=== PATIENT | male | born 1990 | race African-American/Black ===

== ENCOUNTER 2016-09-23 21:30 | Emergency (ER) | payer OTHER ==
[2016-09-23 21:57] VITALS: BMI 21.2
--- NOTE | 2016-09-23 23:38 | PDOC ---
History of Present Illness - General History Source: Patient Exam Limitations: No Limitations - History of Present Illness Initial Comments: 09/24/16 00:41 The patient is a 26 year old male, with a significant past medical history of asthma (as a child), who presents to the emergency department with intermittent nonradiating chest pain for one month but worsening today, prompting the patient to come to the ED for evaluation. The patient describes the chest pain as sharp in nature and he rates it a 7/10 in severity. The patient reports that episodes of the chest pain last 1-2 seconds before resolving. The patient additionally endorses some mild shortness of breath. The patient denies any diaphoresis or palpitations. The patient denies nausea or vomiting. The patient denies a past or family history of cardiac disease. The patient denies any injury or trauma. The patient's mother is at the bedside. Allergies: Ibuprofen, NSAIDS. Past Surgical History: None reported. Social History: Non smoker. Denies alcohol or drug use. PCP: Dr. Magallanes <Brianne Wilder - Last Filed: 09/24/16 00:41> - General History Source: Patient Exam Limitations: No Limitations <Antony Ramirez - Last Filed: 09/24/16 01:46> - General Chief Complaint: Chest Pain Stated Complaint: CHEST PAIN Time Seen by Provider: 09/23/16 23:14 Past History <Brianne Wilder - Last Filed: 09/24/16 00:41> - Past Medical History Disorders: Yes (renal stones) - Psycho/Social/Smoking Cessation Hx Suicidal Ideation: No Smoking Status: No Smoking History: Never smoked Number of Cigarettes Smoked Daily: 0 Hx Alcohol Use: No Drug/Substance Use Hx: No Substance Use Type: None <Antony Raimrez - Last Filed: 09/24/16 01:46> - Past Medical History Allergies/Adverse Reactions: Allergies Allergy/AdvReac Type Severity Reaction Status Date / Time ibuprofen Allergy Severe ANAPHALAXIS Verified 09/23/16 21:41 NSAIDS (Non-Steroidal Allergy Verified 09/23/16 21:41 Anti-Inflamma Home Medications: Ambulatory Orders NK [No Known Home Medication] 09/23/16 Review of Systems - Review of Systems Able to Perform ROS?: Yes Comments:: 09/24/16 00:42 GENERAL/CONSTITUTIONAL: No fever or chills. No weakness. HEAD, EYES, EARS, NOSE AND THROAT: No change in vision. No ear pain or discharge. No sore throat. CARDIOVASCULAR: +Chest pain, shortness of breath. RESPIRATORY: No cough, wheezing, or hemoptysis. GASTROINTESTINAL: No nausea, vomiting, diarrhea or constipation. GENITOURINARY: No dysuria, frequency, or change in urination. MUSCULOSKELETAL: No joint or muscle swelling or pain. No neck or back pain. SKIN: No rash. NEUROLOGIC: No headache, vertigo, loss of consciousness, or change in strength/ sensation. ENDOCRINE: No increased thirst. No abnormal weight change. HEMATOLOGIC/LYMPHATIC: No anemia, easy bleeding, or history of blood clots. ALLERGIC/IMMUNOLOGIC: No hives or skin allergy. <rBianne Wilder - Last Filed: 09/24/16 00:41> *Physical Exam - Vital Signs Last Vital Signs Temp Pulse Resp BP Pulse Ox 97.9 F 57 L 16 118/78 97 09/23/16 21:44 09/23/16 21:44 09/23/16 21:44 09/23/16 21:44 09/23/16 21:44 - Physical Exam Comments: 09/24/16 00:26 GENERAL: Awake, alert, and fully oriented, in no acute distress. HEAD: No signs of trauma. EYES: PERRLA, EOMI, sclera anicteric, conjunctiva clear. ENT: Auricles normal inspection, hearing grossly normal, nares patent, oropharynx clear without exudates. Moist mucosa. NECK: Normal ROM, supple, no lymphadenopathy, JVD, or masses. LUNGS: Breath sounds equal, clear to auscultation bilaterally. No wheezes, and no crackles. HEART: Regular rate and rhythm, normal S1 and S2, no murmurs, rubs or gallops. ABDOMEN: Soft, nontender, normoactive bowel sounds. No guarding, no rebound. No masses. EXTREMITIES: Normal range of motion, no edema. No clubbing or cyanosis. No cords, erythema, or tenderness. NEUROLOGICAL: Cranial nerves II through XII intact. Normal speech, normal gait. SKIN: Warm, dry, normal turgor, no rashes or lesions noted. <Brianne Wilder - Last Filed: 09/24/16 00:41> - Vital Signs Last Vital Signs Temp Pulse Resp BP Pulse Ox 97.9 F 57 L 16 118/78 97 09/23/16 21:44 09/23/16 21:44 09/23/16 21:44 09/23/16 21:44 09/23/16 21:44 <Antony Ramirez - Last Filed: 09/24/16 01:46> Heart Score/ECG Review - History History: Slightly suspicious - Electrocardiogram EKG: Normal - Age Age: </= 45 - Risk Factors Based on the list above the patient has:: No risk factors known - Troponin Troponin: </= normal limit - Score Heart Score - Total: 0 #1 ECG reviewed & interpreted by me at: 21:50 09/24/16 00:20 NSR 55, LVH (though likely normal variant), TWI III, no std/ismael, QTC 403 msec <Antony Ramirez - Last Filed: 09/24/16 01:46> ED Treatment Course - LABORATORY CBC & Chemistry Diagram: 09/23/16 23:45 09/23/16 23:45 - ADDITIONAL ORDERS Additional order review: 09/23/16 23:45 RBC 5.48 MCV 83.4 MCHC 32.9 RDW 13.5 MPV 7.9 Neutrophils % 56.8 D Lymphocytes % 33.9 D Monocytes % 8.0 Eosinophils % 0.9 D Basophils % 0.4 <Brianne Wilder - Last Filed: 09/24/16 00:41> - LABORATORY CBC & Chemistry Diagram: 09/23/16 23:45 09/23/16 23:45 <Antony Ramirez - Last Filed: 09/24/16 01:46> Medical Decision Making - Medical Decision Making 09/24/16 00:17 A portion of this note was documented by scribe services under my direction. I have reviewed the details of the note, within reason, and agree with the documentation with the following case summary and management plan written by me. Patient treated in the ED. Nursing notes are reviewed and incorporated into the medical decision-making. Vital signs reviewed. Peripheral IV access obtained by the nurse, laboratory studies are drawn and sent, reviewed and interpreted by myself. Vital Signs Temp Pulse Resp BP Pulse Ox 97.9 F 57 L 16 118/78 97 09/23/16 21:44 09/23/16 21:44 09/23/16 21:44 09/23/16 21:44 09/23/16 21:44 26-year-old male with childhood asthma presents with atypical chest pain. Patient reports that he's been having intermittent daily 1-2 second duration sharp chest pain with no radiation. Intermittent associated with shortness of breath. States not exertional. States occasionally movement may reproduce it. Denies exercising or trauma. Denies any family history of cardiac diseases. Does not smoke. Stated the symptoms were persistence of came into the ED. EKG is reassuring. This is atypical chest pain. We'll send labs including 1 troponin. If negative, patient is an appointment with his primary care physician tomorrow. 09/24/16 01:45 CBC, BMP 09/23/16 23:45 09/23/16 23:45 CMP Sodium 139 mmol/L (136-145) 09/23/16 23:45 Potassium 3.5 mmol/L (3.5-5.1) 09/23/16 23:45 Chloride 100 mmol/L (98-107) 09/23/16 23:45 Carbon Dioxide 28 mmol/L (21-32) 09/23/16 23:45 Anion Gap 11 (8-16) 09/23/16 23:45 BUN 13 mg/dL (7-18) 09/23/16 23:45 Creatinine 1.2 mg/dL (0.7-1.3) 09/23/16 23:45 Creat Clearance w eGFR > 60 (>60) 09/23/16 23:45 Random Glucose 78 mg/dL (74-106) 09/23/16 23:45 Calcium 9.6 mg/dL (8.5-10.1) 09/23/16 23:45 Total Bilirubin 1.0 mg/dL (0.2-1.0) D 09/23/16 23:45 AST 23 U/L (15-37) 09/23/16 23:45 ALT 38 U/L (12-78) 09/23/16 23:45 Alkaline Phosphatase 54 U/L (45-117) D 09/23/16 23:45 Creatine Kinase 216 IU/L (39-308) 09/23/16 23:45 Creatine Kinase Index % (0.0-5.0) 09/23/16 23:45 CK-MB (CK-2) < 1.000 ng/ml (0.5-3.6) 09/23/16 23:45 CK-MB (CK-2) Rel Index Cancelled 09/23/16 23:45 Troponin I < 0.02 ng/ml (0.00-0.05) 09/23/16 23:45 Total Protein 8.0 g/dl (6.4-8.2) 09/23/16 23:45 Albumin 4.6 g/dl (3.4-5.0) 09/23/16 23:45 Patient has an appointment with his doctor tomorrow. Results of the EKG and labs were given. I discussed the physical exam findings, ancillary test results and final diagnoses with the patient. I answered all of the patient's questions. The patient was satisfied with the care received and felt comfortable with the discharge plan and treatment plan. The patient will call their primary care physician within 24 hours to arrange follow-up and will return to the Emergency Department with any new, persistant or worsening symptoms. <Antony Ramirez - Last Filed: 09/24/16 01:46> *DC/Admit/Observation/Transfer - Attestations Scribe Attestion: 09/24/16 00:25 Documentation prepared by Brianne Wilder, acting as medical supply technician for Antony Ramirez MD. <Brianne Wilder - Last Filed: 09/24/16 00:41> - Discharge Dispostion Admit: No <Antony Ramirez - Last Filed: 09/24/16 01:46> Diagnosis at time of Disposition: Atypical chest pain - Discharge Dispostion Disposition: HOME Condition at time of disposition: Stable - Referrals Referrals: Unruly Magallanes MD [Primary Care Provider] - Kehinde Shrestha MD [Staff Physician] - - Patient Instructions Printed Discharge Instructions: DI for Atypical Chest Pain Additional Instructions: Please take 650 mg tylenol every 4 hours as needed for pain. Please follow up with your doctor tomorrow. Give him a copy of the results.
[2016-09-24 00:09] LABS: BASOPHIL 0.4 % (0-2.0); EOSINOPHIL 0.9 % (0-4.5); MCH 27.4 pg (25.7-33.7); MCHC 32.9 g/dl (32.0-35.9); MEAN CELL VOLUME 83.4 fl (80-96); MEAN PLT VOLUME 7.9 fl (7.5-11.1); NEUTROPHILS 56.8 % (42.8-82.8); PLATELET COUNT 185 K/MM3 (134-434); RDW 13.5 % (11.9-15.9); WHITE BLOOD COUNT 6.8 K/mm3 (4.0-10.0)
[2016-09-24 00:37] LABS: ALBUMIN 4.6 g/dl (3.4-5.0); ANION GAP 11 (8-16); CALCIUM 9.6 mg/dL (8.5-10.1); CO2 28 mmol/L (21-32); COCKROFT - GAULT 99.61; CREATININE 1.2 mg/dL (0.7-1.3); GLUCOSE,RANDOM 78 mg/dL (74-106); SGOT/AST 23 U/L (15-37); SGPT/ALT 38 U/L (12-78)
[2016-09-24 00:41] LABS: ALK PHOS 54 U/L (45-117); TROPONIN I < 0.02 ng/ml (0.00-0.05)
[2016-09-24] MEDS ORDERED: ACETAMINOPHEN 325 MG TABLET (FP) ONE (01:53)
[2016-09-24] MEDS: ACETAMINOPHEN 325 MG TABLET (FP) PO ONE (02:00)
[2016-09-24 02:01] VITALS: BP 112/76; PULSE 62; TEMP 97.6
--- NOTE | 2016-09-24 17:26 | EKG ---
Test Reason : Blood Pressure : / mmHG Vent. Rate : 055 BPM Atrial Rate : 055 BPM P-R Int : 140 ms QRS Dur : 084 ms QT Int : 422 ms P-R-T Axes : 028 015 020 degrees QTc Int : 403 ms SINUS BRADYCARDIA MINIMAL VOLTAGE CRITERIA FOR LVH, MAY BE NORMAL VARIANT BORDERLINE ECG WHEN COMPARED WITH ECG OF 16-SEP-2004 00:34, PREVIOUS ECG IS PRESENT Confirmed by LIBBY SANDHU, KORY ([id number]) on 09/24/2016 5:26:00 PM Referred By: Confirmed By:KORY SOUZA MD
== END 2016-09-24 02:03 | disposition home or self-care (01) ==
LOC: JER 21:30
DX: R78.9 Finding of unspecified substance, not normally found in blood (principal); J45.909 Unspecified asthma, uncomplicated; Z87.442 Personal history of urinary calculi
CPT/HCPCS: 36415; 80053; 82550; 82553; 84484; 85025; 93005; 93010; 99283-25

== ENCOUNTER 2019-07-12 05:20 | Emergency (ER) | payer OTHER ==
[2019-07-12 06:16] VITALS: BP 117/63; PULSE 78; TEMP 98.4; BMI 52.2
[2019-07-12] MEDS ORDERED: SODIUM CHLORIDE 1,000 ML IV STA (07:26)
--- NOTE | 2019-07-12 07:32 | PDOC ---
History of Present Illness - General History Source: Patient Exam Limitations: No Limitations - History of Present Illness Initial Comments: 07/12/19 07:28 Patient is a 29-year-old male who presents to the ED with complaint of left abdominal and left flank pain that radiates into his groin and testicle since 1 AM. He states the pain woke him out of sleep. He describes the pain as grabbing. He does admit to nausea without vomiting. He did note some hematuria earlier which seems to be resolving. He denies any fevers or chills. He took Tylenol earlier which did help slightly with his pain. He denies any past medical history and is allergic to ibuprofen. <Angela Mueller - Last Filed: 07/12/19 09:15> <Tye Hay - Last Filed: 07/12/19 15:25> - General Chief Complaint: Pain Stated Complaint: GROIN/ABD PAIN Time Seen by Provider: 07/12/19 07:21 Past History - Past Medical History COPD: No Disorders: Yes (renal stones) - Psycho Social/Smoking Cessation Hx Smoking Status: No Smoking History: Never smoked Number of Cigarettes Smoked Daily: 0 Hx Alcohol Use: No Drug/Substance Use Hx: No Substance Use Type: None <Angela Mueller - Last Filed: 07/12/19 09:15> <Tye Hay - Last Filed: 07/12/19 15:25> - Past Medical History Allergies/Adverse Reactions: Allergies Allergy/AdvReac Type Severity Reaction Status Date / Time ibuprofen Allergy Severe ANAPHALAXIS Verified 09/23/16 21:41 NSAIDS (Non-Steroidal Allergy Verified 09/23/16 21:41 Anti-Inflamma Home Medications: Ambulatory Orders Hydrocodone/Acetaminophen [Rome 5-325 Tablet] 1 each PO Q6H PRN #12 tablet MDD 4 07/12/19 Review of Systems - Review of Systems Comments:: 07/12/19 07:28 - Review of Systems Able to Perform ROS?: Yes Constitutional: No: Fever, Chills, Loss of Appetite, Night Sweats, Weakness HEENTM: No: Eye Pain, Vision changes, Ear Pain, Throat Pain, Throat Swelling, Mouth Pain, Difficulty Swallowing Respiratory: No: Cough, Shortness of Breath, Wheezing, Sputum Production Cardiac (ROS): No: Chest Pain, Chest Tightness, Palpitations, Irregular Heart Beat, Edema ABD/GI: No: Vomiting, Diarrhea; positive left flank and left abdominal pain, positive nausea : No Dysuria, No Frequency, No Urgency; positive hematuria, positive pain radiating to his left testicle Musculoskeletal: No: Muscle Pain, Back Pain, Joint Pain, Muscle Weakness, Neck Pain Integumentary: No: Lesions, Rash Neurological: No: Headache, Numbness, Tingling, Weakness, Speech Difficulties <Angela Mueller - Last Filed: 07/12/19 09:15> *Physical Exam - Vital Signs Last Vital Signs Temp Pulse Resp BP Pulse Ox 98.4 F 78 16 117/63 98 07/12/19 05:56 07/12/19 05:56 07/12/19 05:56 07/12/19 05:56 07/12/19 05:56 - Physical Exam 07/12/19 07:30 - Physical Exam General Appearance: Nourished, Appropriately Dressed, No Distress HEENT: EOMI, Normal Voice, No Muffled/Hoarse voice, No Nasal Congestion, No Rhinorrhea, Hearing Grossly Normal Neck: Supple, No Lymphadenopathy (R), No Lymphadenopathy (L), No Rigidity, No Decreased range of motion Respiratory/Chest: Lungs Clear, Normal Breath Sounds. No Respiratory Distress, No Accessory Muscle Use Cardiovascular: Regular Rhythm, Regular Rate, S1, S2 Gastrointestinal/Abdominal: Normal Bowel Sounds, Soft. No Guarding, No Rebound, No Rigidity; left CVA tenderness to palpation. There is left mid abdominal tenderness to palpation. No rebound or rigidity. No tenderness to palpation to the left testicle. No masses appreciated. Musculoskeletal: Normal Inspection. No Decreased Range of Motion Extremity: Normal Capillary Refill, Normal Inspection Integumentary: Normal Color, Dry. No Rash Neurologic: project development leader II-XII NML intact, Fully Oriented, Alert, Normal Mood/Affect, Normal Response <Angela Mueller - Last Filed: 07/12/19 09:15> - Vital Signs Last Vital Signs Temp Pulse Resp BP Pulse Ox 98.4 F 78 16 117/63 98 07/12/19 05:56 07/12/19 05:56 07/12/19 05:56 07/12/19 05:56 07/12/19 05:56 <Tye Hay - Last Filed: 07/12/19 15:25> ED Treatment Course - LABORATORY CBC & Chemistry Diagram: 07/12/19 07:40 07/12/19 07:40 - ADDITIONAL ORDERS Additional order review: 07/12/19 09:15 Laboratory Tests 07/12/19 07:40 Urine Color Yellow Urine Appearance Clear Urine pH 7.5 D Ur Specific Concrete 1.002 L Urine Protein Negative Urine Glucose (UA) Negative Urine Ketones Negative Urine Blood 2+ H Urine Nitrite Negative Urine Bilirubin Negative Urine Urobilinogen 0.2 Ur Leukocyte Esterase Negative - RADIOLOGY Radiology Studies Ordered: Category Date Time Status ABDOMEN & PELVIS CT W/O CONTR [CT] Stat CT Scan 07/12/19 07:26 Ordered <Angela Mueller D - Last Filed: 07/12/19 09:15> - LABORATORY CBC & Chemistry Diagram: 07/12/19 07:40 07/12/19 07:40 - ADDITIONAL ORDERS Additional order review: Laboratory Results 07/12/19 07/12/19 07/12/19 07:40 07:40 07:40 Sodium 136 Potassium 4.2 Chloride 102 Carbon Dioxide 30 Anion Gap 3 L BUN 11.0 Creatinine 1.2 Est GFR (CKD-EPI)AfAm 94.80 Est GFR (CKD-EPI)NonAf 81.80 Random Glucose 91 Calcium 9.8 Total Bilirubin 0.5 AST 20 ALT 30 Alkaline Phosphatase 55 Total Protein 8.2 Albumin 4.6 Lipase 125 Urine Color Yellow Urine Appearance Clear Urine pH 7.5 D Ur Specific Concrete 1.002 L Urine Protein Negative Urine Glucose (UA) Negative Urine Ketones Negative Urine Blood 2+ H Urine Nitrite Negative Urine Bilirubin Negative Urine Urobilinogen 0.2 Ur Leukocyte Esterase Negative Urine WBC (Auto) 1 Urine RBC (Auto) 4 Urine Casts (Auto) 0 U Pathogenic Cast Auto Negative U Epithel Cells (Auto) 2 U Sm Round Cell (Auto) Rbcs Urine Crystals (Auto) Negative Urine Bacteria (Auto) Negative Urine Yeast (Auto) Negative 07/12/19 07:40 RBC 5.17 MCV 84.1 MCHC 33.6 RDW 13.4 MPV 7.9 Neutrophils % 61.4 Lymphocytes % 29.5 Monocytes % 8.4 Eosinophils % 0.4 Basophils % 0.3 - Medications Given in the ED: ED Medications Discontinued Medications Generic Name Dose Route Start Last Admin Trade Name Freq PRN Reason Stop Dose Admin Sodium Chloride 1,000 mls @ 1,000 mls/hr 07/12/19 07:26 07/12/19 07:57 Normal Saline - IV 07/12/19 08:25 1,000 mls/hr ASDIR STA Administration <Tye Hay - Last Filed: 07/12/19 15:25> Medical Decision Making - Medical Decision Making 07/12/19 07:31 Assessment: Patient is a 29-year-old male with left flank and left abdominal pain radiating into his left groin and testicle. Plan: -Labs ordered including UA and urine culture -Spiral CT ordered -Saline lock and NS bolus -Offered analgesia but the patient has declined at this time. -Will reassess 07/12/19 09:15 The patient has been made aware that he has a left 3 mm nonobstructing stone without hydronephrosis at the UVJ. There is no evidence of urinary tract infection. The patient has been made aware that he will likely passed the stone on his own. We will give him strainers so he can try to strain his urine. We will have him follow-up with urology for further evaluation and treatment. A prescription for [place] has been sent to his pharmacy for severe pain. He understands and agrees with this treatment plan and he is stable for discharge. <Angela Mueller - Last Filed: 07/12/19 09:15> - Medical Decision Making 07/12/19 15:25 I reviewed the case of the mid-level practitioner and was available for consultation while in the emergency department <Tye Hay - Last Filed: 07/12/19 15:25> Discharge - Discharge Information Problems reviewed: Yes <Angela Mueller - Last Filed: 07/12/19 09:15> <Tye Hay - Last Filed: 07/12/19 15:25> - Discharge Information Clinical Impression/Diagnosis: Calculus of left kidney Condition: Stable Disposition: HOME - Additional Discharge Information Prescriptions: Hydrocodone/Acetaminophen [Rome 5-325 Tablet] 1 each PO Q6H PRN #12 tablet MDD 4 PRN Reason: Pain - Follow up/Referral Referrals: Sampson Tovar MD [Staff Physician] - 1 week Unruly Magallanes MD [Primary Care Provider] - 2 Days - Patient Discharge Instructions Patient Printed Discharge Instructions: DI for Kidney Stones Additional Instructions: Increase your fluid intake. Take Tylenol for mild pain and Rome for severe pain. Try and strain your urine to catch the kidney stone. If you catch the kidney stone be sure to bring you to urology so I can be sent to the lab. Get plenty of rest. Return to the emergency department for severe pain, high fevers , shaking chills, profuse vomiting or any other worsening symptoms. - Post Discharge Activity Work/Back to School Note: Back to Work
[2019-07-12 08:32] LABS: BASO % 0.3 % (0-2.0); EOS % 0.4 % (0-4.5); HEMATOCRIT 43.5 % (35.4-49); HEMOGLOBIN 14.6 GM/dL (11.7-16.9); LYMPH % 29.5 % (8-40); MCH 28.3 pg (25.7-33.7); MCHC 33.6 g/dl (32.0-35.9); MEAN CELL VOLUME 84.1 fl (80-96); MEAN PLT VOLUME 7.9 fl (7.5-11.1); MONO % 8.4 % (3.8-10.2); NEUT % 61.4 % (42.8-82.8); PLATELET COUNT 206 K/MM3 (134-434); RBC 5.17 M/mm3 (4.00-5.60); RDW 13.4 % (11.9-15.9); WHITE BLOOD COUNT 4.7 K/mm3 (4.0-10.0)
[2019-07-12 08:42] LABS: ALBUMIN 4.6 g/dl (3.4-5.0); BILIRUBIN,TOTAL 0.5 mg/dL (0.2-1); CALCIUM 9.8 mg/dL (8.5-10.1); CREATININE 1.2 mg/dL (0.55-1.3); POTASSIUM 4.2 mmol/L (3.5-5.1); TOT PROT 8.2 g/dl (6.4-8.2)
[2019-07-12 08:47] LABS: PH,URINE 7.5 (5.0-8.0); URINE APPEARANCE CLEAR; URINE BILIRUBIN NEGATIVE (NEGATIVE); URINE COLOR YELLOW; URINE GLUCOSE (UA) NEGATIVE (NEGATIVE); URINE KETONE NEGATIVE (NEGATIVE); URINE LEUK ESTERASE NEGATIVE (NEGATIVE); URINE NITRITE NEGATIVE (NEGATIVE); URINE PROTEIN NEGATIVE (NEGATIVE); URINE UROBILINOGEN 0.2 mg/dL (0.2-1.0)
[2019-07-12 15:11] LABS: EPI CELLS 2 /HPF (0-5/HPF); HYALINE CASTS 0 /lpf (0-8); URINE BACTERIA NEGATIVE /hpf (NEGATIVE); URINE CRYSTALS NEGATIVE /hpf; URINE RBC 4 /hpf (0-4); URINE WBC 1 /hpf (0-5); YEAST NEGATIVE (NEGATIVE)
== END 2019-07-12 10:02 | disposition home or self-care (01) ==
LOC: JER 05:20
PROC: 3E0337Z Introduction of Electrolytic and Water Balance Substance into Peripheral Vein, Percutaneous Approach (ICD-10-PCS; principal; 2019-07-12)
DX: N20.0 Calculus of kidney (principal); Z88.8 Allergy status to other drugs, medicaments and biological substances
CPT/HCPCS: 36415; 74176-TC; 80053; 81003; 83690; 85025; 87086; 99284-25; J7030